=== PATIENT | female | born 1975 | race Caucasian/White ===

== ENCOUNTER → 2018-02-01 10:59 | Outpatient (CLI) | payer OTHER, SELFPAY ==
[2018-02-01 11:32] LABS: Potassium 3.5 mmol/L (3.5-5.1)
[2018-02-01 14:08] LABS: Urine Chloride < 10 mmol/L (Not Establ.); Urine Sodium < 5 mmol/L (Not Establ.)
== END ==
PROVIDERS: Visit Provider Internal Medicine Nephrology
DX: E87.6 Hypokalemia (principal)
CPT/HCPCS: 36415; 82436; 84132; 84133; 84300

== ENCOUNTER 2018-02-06 14:31 | Emergency (ER) | payer OTHER, SELFPAY ==
[2018-02-06 14:32] VITALS: BP 112/53; PULSE 108; RESP 18; TEMP 36.4; O2SAT 98; BMI 21.9
--- NOTE | 2018-02-06 14:56 | EKG12_ITS ---
Test Reason : ABN LABS Blood Pressure : / mmHG Vent. Rate : 093 BPM Atrial Rate : 093 BPM P-R Int : 110 ms QRS Dur : 078 ms QT Int : 364 ms P-R-T Axes : 073 086 057 degrees QTc Int : 452 ms Sinus rhythm with short [place] Otherwise normal ECG Confirmed by DAKOTA JEONG, KATHERYN ([id number]), medical transcription editor SAMANTHA VILLEGAS ([id number]) on 02/09/2018 1:52:26 PM Referred By: CANDIS Confirmed By:KATHERYN DUNCAN MD
--- NOTE | 2018-02-06 15:00 | ED.VISSUMM ---
- ER Visit Summary Date of Service: 02/06/18 Chief Complaint: Hypokalemia History of Present Illness: The patient is a 42 F with possible low potassium. She had multiple episodes of this in the past. She feels weak and has muscle contractions and nausea vomiting. Symptoms started yesterday. She has been taking 50 mEq of potassium 4 times a day. She has been hospitalized multiple times for this. She is not sure why she has hypokalemia. Physical Examination: Afebrile and vital signs unremarkable except for heart rate of 108. Skin appears normal. Heart regular. Lungs clear. No focal neurologic abnormalities grossly. Test Results: EKG, labs, magnesium pending. Emergency Department Course and Treatment: Hemoglobin 17.6 and platelets 462. Sodium 134, potassium 1.4, chloride 93, CO2 33, BUN 20, creatinine 1.24. Magnesium 2.8. test negative. EG showed sinus rhythm at a rate of 93. No sign of acute ischemia or infarction pattern. No signs of hyperkalemia changes. I do not have old labs for comparison. It looks like the patient is a little bit dehydrated. She received a fluid bolus here. I believe she is appropriate for outpatient follow-up. She will call her learning program manager for follow-up tomorrow. If she has trouble following up or has new or worsening symptoms, she was advised to return. Treatment Plan: As above Disposition: Discharged Impression: 1. Dehydration This note was generated with [employer] dictation software. It may contain incorrect words, spelling, and punctuation that were not noted in review of the chart prior to signing ED Disposition - Plan for ED Patient: Chief Complaint: Abn Labs Referrals: Carline Rose PA-C [Primary Care Provider] -
--- NOTE | 2018-02-06 15:03 | ED.DCSUM_ITS ---
- ER Visit Summary Date of Service: 02/06/18 Chief Complaint: Hypokalemia History of Present Illness: The patient is a 42 F with possible low potassium. She had multiple episodes of this in the past. She feels weak and has muscle contractions and nausea vomiting. Symptoms started yesterday. She has been taking 50 mEq of potassium 4 times a day. She has been hospitalized multiple times for this. She is not sure why she has hypokalemia. Physical Examination: Afebrile and vital signs unremarkable except for heart rate of 108. Skin appears normal. Heart regular. Lungs clear. No focal neurologic abnormalities grossly. Test Results: EKG, labs, magnesium pending. Emergency Department Course and Treatment: Hemoglobin 17.6 and platelets 462. Sodium 134, potassium 1.4, chloride 93, CO2 33, BUN 20, creatinine 1.24. Magnesium 2.8. test negative. EG showed sinus rhythm at a rate of 93. No sign of acute ischemia or infarction pattern. No signs of hyperkalemia changes. I do not have old labs for comparison. It looks like the patient is a little bit dehydrated. She received a fluid bolus here. I believe she is appropriate for outpatient follow-up. She will call her ski maker wood for follow-up tomorrow. If she has trouble following up or has new or worsening symptoms, she was advised to return. Treatment Plan: As above Disposition: Discharged Impression: 1. Dehydration This note was generated with [employer] dictation software. It may contain incorrect words, spelling, and punctuation that were not noted in review of the chart prior to signing ED Disposition - Plan for ED Patient: Chief Complaint: Abn Labs Referrals: Carline Rose PA-C [Primary Care Provider] -
[2018-02-06 15:12] VITALS: BP 99/82; RESP 14; O2SAT 99
[2018-02-06 15:12] LABS: Absolute Lymphocyte Count 3.31 X10^3/ul (0.83-4.51); Absolute Neutrophil Count 5.8 X10^3/uL (2.0-7.7); Basophil# 0.05 X10^3/uL; Basophil% 0.5 % (0-1); Eosinophil# 0.03 X10^3/uL; Eosinophils% 0.3 % (0-5); Hematocrit 50.9 % (37-47); Hemoglobin 17.6 g/dl (12.0-15.0); Lymphocyte # 3.31 X10^3/ul (4.0); Lymphocyte % 31.9 % (19-41); Mean Corp Hgb Conc 34.6 g/gl (32-36); Mean Corpuscular Hgb 32.2 pg (27.0-32.0); Mean Corpuscular Volume 93.2 fL (81-99); Mean Platelet Vol. 9.3 fl (6.2-12.0); Monocyte# 1.13 X10^3/uL; Monocyte% 10.9 % (0-10); Neutrophil # 5.84 X10^3/uL (2.7-7.7); Neutrophil % 56.2 % (47-70); Platelet Count 462 K/mm3 (150-450); RBC Distribution Width CV 14.3 % (11.6-14.6); RBC Distribution Width SD 48.2 fl (35.1-43.9); Red Blood Count 5.46 M/mm3 (4.2-5.4); White Blood Count 10.4 K/mm3 (4.4-11.0)
[2018-02-06 15:13] LABS: Differential Indicated SCAN CRITERIA MET; POSITIVE COUNT NO; POSITIVE DIFFERENTIAL NO; POSITIVE MORPHOLOGY YES
[2018-02-06 15:14] LABS: Anion Gap 8 (5-15); BUN 20 mg/dL (7-18); BUN/Creat Ratio 16.1 RATIO (10-20); Calcium,Total 9.3 mg/dL (8.5-10.1); Chloride 93 mmol/L (98-107); Creatinine, Serum 1.24 mg/dL (0.55-1.02); EST Glomerular Filtration Rate 50 mL/min (>60); Est Glom Filt Rate - Afr Amer 61 mL/min (>60); Estimated Creatinine Clearance 48.89 ml/min; Glucose 69 mg/dL (74-106); Magnesium 2.8 mg/dL (1.6-2.6); Potassium 4.4 mmol/L (3.5-5.1); Sodium Level 134 mmol/L (136-145)
[2018-02-06 15:43] LABS: Pregnancy, Serum, hCG Quali. NEGATIVE Negative (0-9 Nonpreg)
[2018-02-06 15:48] LABS: Reactive Lymphocyte 2+
--- NOTE | 2018-02-06 16:02 | ED.DEP ---
ED Disposition - Plan for ED Patient: Chief Complaint: Abn Labs Instructions: ED Dehydration Referrals: Angelica Guadarrama DO [STAFF PHYSICIAN] -
[2018-02-06] MEDS: 0.9% Normal Saline 1,000 ML 999 ML IV (16:10)
[2018-02-06 16:50] VITALS: BP 96/79; PULSE 88; RESP 16; O2SAT 100
== END 2018-02-06 16:56 | disposition home or self-care (01) ==
PROVIDERS: Emergency Provider Emergency Medicine; Family Provider Family Medicine; PCP Family Medicine
DX: E87.6 Hypokalemia (principal); E86.0 Dehydration; Z72.0 Tobacco use; G43.909 Migraine, unspecified, not intractable, without status migrainosus; F41.9 Anxiety disorder, unspecified; F42.9 Obsessive-compulsive disorder, unspecified; Z79.899 Other long term (current) drug therapy
CPT/HCPCS: 80048; 83735; 84703; 85025; 93005; 96360; 99285; J7030; A4216

== ENCOUNTER 2018-02-14 10:22 | Emergency (ER) | payer OTHER, SELFPAY ==
[2018-02-14 10:23] VITALS: BP 108/79; PULSE 113; RESP 18; TEMP 36.6; O2SAT 97; BMI 21.6
--- NOTE | 2018-02-14 10:56 | RAD_ITS ---
STUDY: X-RAY CHEST REASON FOR EXAM: Female, 42 years old. Decreased potassium level. Dehydration. TECHNIQUE: PA and lateral views of the chest. COMPARISON: None. FINDINGS: The lungs are clear and expanded. There is no demonstrated pleural abnormality. Normal size heart. Normal mediastinum and lia. Normal visualized pulmonary arteries. Normal visualized aortic arch and descending thoracic aorta. Normal visualized thoracic spine. Normal visualized ribs, clavicles, and shoulders. There is no demonstrated abnormality of the visualized soft tissue structures of the upper abdomen. RAD/Chest PA and Lateral IMPRESSION: Normal x-ray examination of the chest. Electronically Signed: Kiko Montejo MD at 12:29 EDT Tel [phone], Service support ,
[2018-02-14 11:17] LABS: Absolute Lymphocyte Count 3.11 X10^3/ul (0.83-4.51); Absolute Neutrophil Count 5.6 X10^3/uL (2.0-7.7); Basophil# 0.02 X10^3/uL; Basophil% 0.2 % (0-1); Eosinophil# 0.01 X10^3/uL; Eosinophils% 0.1 % (0-5); Hematocrit 46.1 % (37-47); Hemoglobin 16.3 g/dl (12.0-15.0); Lymphocyte # 3.11 X10^3/ul (4.0); Lymphocyte % 32.6 % (19-41); Mean Corp Hgb Conc 35.4 g/gl (32-36); Mean Corpuscular Volume 90.4 fL (81-99); Monocyte# 0.76 X10^3/uL; Neutrophil # 5.62 X10^3/uL (2.7-7.7); Neutrophil % 58.9 % (47-70); POSITIVE COUNT NO; POSITIVE DIFFERENTIAL NO; POSITIVE MORPHOLOGY NO; Platelet Count 429 K/mm3 (150-450); RBC Distribution Width CV 13.6 % (11.6-14.6); RBC Distribution Width SD 44.7 fl (35.1-43.9); White Blood Count 9.5 K/mm3 (4.4-11.0)
[2018-02-14] MEDS: 0.9% Normal Saline 1,000 ML 1000 ML IV (11:20)
[2018-02-14] MEDS: Ondansetron 4 MG/2 ML Vial IV (11:20)
[2018-02-14] MEDS: Ketorolac 30 MG/ML Syringe IV (11:20)
[2018-02-14 11:27] LABS: Anion Gap 11 (5-15); BUN 21 mg/dL (7-18); BUN/Creat Ratio 22.7 RATIO (10-20); Calcium,Total 8.5 mg/dL (8.5-10.1); Chloride 93 mmol/L (98-107); Creatinine, Serum 0.92 mg/dL (0.55-1.02); EST Glomerular Filtration Rate 70 mL/min (>60); Est Glom Filt Rate - Afr Amer 85 mL/min (>60); Glucose 82 mg/dL (74-106); Potassium 3.1 mmol/L (3.5-5.1); Sodium Level 133 mmol/L (136-145)
[2018-02-14 11:38] VITALS: RESP 16; TEMP 36.9; O2SAT 100
[2018-02-14 12:00] LABS: Pregnancy, Serum, hCG Quali. NEGATIVE Negative (0-9 Nonpreg)
--- NOTE | 2018-02-14 12:41 | ED.VISSUMM ---
- ER Visit Summary Date of Service: 02/14/18 Chief Complaint: Weakness History of Present Illness: The patient is a [address] Rose. She reports that she has generalized weakness that began yesterday. States that she has had this previously when she has been dehydrated and her potassium has been low. Patient reports that she has a cough that began 3 days ago that is productive green sputum without blood. She denies any abdominal pain. She reports she has been nausea and vomited 6 times. No blood or emesis. She had one episode of diarrhea. No blood in her stools. Physical Examination: Vitals: Stable. Afebrile. General: Well-nourished and well-developed. Head: Normocephalic atraumatic. Neck: Supple, no lymphadenopathy. No JVD. Nontender. Cardiovascular: Regular rate and rhythm. No murmurs. Respiratory: No respiratory distress. Clear to auscultation bilaterally. Abdominal: Soft, nontender, nondistended, normal bowel sounds. No guarding, rebound, or peritoneal signs. Back: Nontender. Extremities: Nontender, no edema. Skin: Normal color, no rash. Neurologic: Alert and oriented ?3. Cranial nerves II through XII are intact. Normal strength and sensation. Psych: Normal affect. Test Results: CBC is marked for hemoglobin 16.3. Chem-7 is marked potassium 3.1, chloride of 93, BUN 21, BUN/creatinine ratio 22.7. test is negative. Chest x-ray is normal. Emergency Department Course and Treatment: Patient was given a liter bolus of normal saline. She is also given K-Dur p.o. She has had no vomiting or diarrhea while here. Treatment Plan: Patient will be discharged on 3 days of potassium. She is given Zofran for nausea. Instructed to follow-up her primary care physician 1-2 days if not improving. Return to the emergency department for any worsening symptoms. Disposition: To home in improved and stable condition. Impression: 1. Dehydration. 2. Hypokalemia. 3. URI. This note was generated with [employer] dictation software. It may contain incorrect words, spelling, and punctuation that were not noted in review of the chart prior to signing ED Disposition - Plan for ED Patient: Chief Complaint: Abn Labs Instructions: ED Potassium Deficiency Prescriptions: Ondansetron [Zofran Odt] 4 mg PO Q8H PRN PRN #10 tablet PRN Reason: Nausea Potassium Chloride [K-Dur] 20 meq PO BID #10 tablet Referrals: Carline Rose PA-C [Primary Care Provider] - 1-2 Days if not improving
--- NOTE | 2018-02-14 12:52 | ED.DCSUM_ITS ---
- ER Visit Summary Date of Service: 02/14/18 Chief Complaint: Weakness History of Present Illness: The patient is a [address] Rose. She reports that she has generalized weakness that began yesterday. States that she has had this previously when she has been dehydrated and her potassium has been low. Patient reports that she has a cough that began 3 days ago that is productive green sputum without blood. She denies any abdominal pain. She reports she has been nausea and vomited 6 times. No blood or emesis. She had one episode of diarrhea. No blood in her stools. Physical Examination: Vitals: Stable. Afebrile. General: Well-nourished and well-developed. Head: Normocephalic atraumatic. Neck: Supple, no lymphadenopathy. No JVD. Nontender. Cardiovascular: Regular rate and rhythm. No murmurs. Respiratory: No respiratory distress. Clear to auscultation bilaterally. Abdominal: Soft, nontender, nondistended, normal bowel sounds. No guarding, rebound, or peritoneal signs. Back: Nontender. Extremities: Nontender, no edema. Skin: Normal color, no rash. Neurologic: Alert and oriented ?3. Cranial nerves II through XII are intact. Normal strength and sensation. Psych: Normal affect. Test Results: CBC is marked for hemoglobin 16.3. Chem-7 is marked potassium 3.1 , chloride of 93, BUN 21, BUN/creatinine ratio 22.7. test is negative. Chest x-ray is normal. Emergency Department Course and Treatment: Patient was given a liter bolus of normal saline. She is also given K-Dur p.o. She has had no vomiting or diarrhea while here. Treatment Plan: Patient will be discharged on 3 days of potassium. She is given Zofran for nausea. Instructed to follow-up her primary care physician 1- 2 days if not improving. Return to the emergency department for any worsening symptoms. Disposition: To home in improved and stable condition. Impression: 1. Dehydration. 2. Hypokalemia. 3. URI. This note was generated with [employer] dictation software. It may contain incorrect words, spelling, and punctuation that were not noted in review of the chart prior to signing ED Disposition - Plan for ED Patient: Chief Complaint: Abn Labs Instructions: ED Potassium Deficiency Prescriptions: Ondansetron [Zofran Odt] 4 mg PO Q8H PRN PRN #10 tablet PRN Reason: Nausea Potassium Chloride [K-Dur] 20 meq PO BID #10 tablet Referrals: Carline Rose PA-C [Primary Care Provider] - 1-2 Days if not improving
[2018-02-14 13:07] VITALS: BP 108/73; PULSE 93; RESP 16; O2SAT 98
== END 2018-02-14 13:24 | disposition home or self-care (01) ==
LOC: ED 11:19
PROVIDERS: Emergency Provider Emergency Medicine; Family Provider Family Medicine; PCP Family Medicine
DX: E87.6 Hypokalemia (principal); E86.0 Dehydration; J06.9 Acute upper respiratory infection, unspecified; G43.909 Migraine, unspecified, not intractable, without status migrainosus; K58.9 Irritable bowel syndrome, unspecified; F41.9 Anxiety disorder, unspecified; Z79.899 Other long term (current) drug therapy; Z72.0 Tobacco use
CPT/HCPCS: 71046; 80048; 84703; 85025; 96361; 96374; 96375; 99283; A4216; J2405

== ENCOUNTER → 2020-02-16 | Outpatient (CLI) | payer OTHER, SELFPAY ==
[2020-02-16 12:24] LABS: Color, Urine Yellow (Yellow); Glucose, Dipstick Normal (Normal); Ketone-Dipstick Negative (Negative); Leukocyte Esterase-Dipstick 500 /ul (Negative); Nitrite-Dipstick Negative (Negative); Occult Blood-Urine 10 /ul (Negative); Protein-Dipstick 15 mg/dl (Negative); Specific Gravity, Urine 1.025 (1.002-1.030); Urine Bilirubin Dipstick Negative (Negative); Urine Clarity Sl. Cloudy (Clear); Urine Urobilinogen Normal (Normal)
[2020-02-16 12:59] LABS: White Blood Cells 10-25 SEEN /hpf (0-5)
[2020-02-16 13:00] LABS: Bacteria 2+ /hpf (None Seen); Calcium Oxalate Crystals Ur 2+ /hpf (<or=2+); Mucous, Urine 2+ /hpf (<or=2+); Red Blood Cells-Urine 0-5 SEEN /hpf (0-5); Squamous Epithelial Cells - UA 10-25 SEEN /hpf (5-10)
== END | disposition home or self-care (01) ==
LOC: LABSPEC 11:49
PROVIDERS: PCP Family Medicine; Referring Provider Obstetrics & Gynecology; Visit Provider Obstetrics & Gynecology
DX: R30.0 Dysuria (principal)
CPT/HCPCS: 81001; 87086; 87088; 87186

== ENCOUNTER → 2020-05-26 | Outpatient (CLI) | payer OTHER, SELFPAY ==
[2020-05-26 17:30] LABS: Chlamydia Trachomatis by PCR Negative (Negative); Neisserai gonorrhoeae by PCR Negative (Negative); Probe Check PASS; Sample Adequacy Control PASS; Specimen Processing Control PASS; Trichomonas Vag DNA by PCR Negative (Negative)
== END | disposition home or self-care (01) ==
LOC: LABSPEC 15:36
PROVIDERS: PCP Family Medicine; Visit Provider Obstetrics & Gynecology
DX: Z11.3 Encounter for screening for infections with a predominantly sexual mode of transmission (principal)
CPT/HCPCS: 87491; 87591; 87661

== ENCOUNTER → 2021-05-28 | Outpatient (CLI) | payer OTHER, SELFPAY ==
--- NOTE | 2021-05-28 | IMM_PTH ---
PATIENT: LIEN IZAGUIRRE LOC: [facility] U#:[id number] AGE/SX: 46/F ROOM: RE05/28/[address]: Dr. Beulah Lepe MD : 1975 BED: DIS: 05/28/2021 SPEC #: [id number] RECD: 06/01/21 14:38 STATUS: IMANI REQ #: [id number] JO ANN: 05/28/21 00:[address]: Beulah Lepe DEPT: IMMUNOHISTOCHEMISTRY RECD BY: Shala Brush ENTERED: 06/01/21 14:38 SP TYPE: IMMUNO OTHR DR: Carline Rose PA-C Tissues: B - Uterine cervix, NOS Procedures: p16 (initial) KI-67 (add) PHYSICIAN & INSTITUTION [place] [phone] SPECIMEN INFORMATION: Tissue Source: B ? Cervix at 3 and 6 o?clock Clinical Info: ASCUS HPV positive Specimen Number: [id number] CPT code: 29833, 90845 METHODOLOGY: Deparaffinized sections of prefer/formalin-fixed tissue or PAP/DQ stained slides are incubated with monoclonal/polyclonal antibodies/oligonucleotide probes. Localization is made via biotin free immunoperoxidase method. Appropriate controls are performed and reacted as expected. Results on target cell population are indicated in the following table: RESULTS: ANTIBODY / CLONE RESULT Block B P16 (E6H4) positive, patchy and focal block-like Ki-67 (30-9) positive, low These tests were developed and their performance characteristics determined by [facility]. They may not have been cleared or approved by the U.S. Food and Drug Administration. The FDA has determined that such clearance or approval is not necessary. The above immunohistochemical/dualISH markers are ordered and reviewed by the Pathologist. INTERPRETATION: B. 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 AM:carlos enrique 06/02/2021 Case has been reviewed in consultation with Dr. Basurto who concurs with the above diagnosis. IDC:SJ
[2021-05-28 13:23] VITALS: BMI 21.8
--- NOTE | 2021-05-28 14:00 | ECC_PTH ---
PATIENT: LIEN IZAGUIRRE [id number] AGE/SX: 46/F ROOM: RE05/28/[address]: Dr. Beulah Lepe MD : 1975 BED: DIS: 05/28/2021 SPEC #: [id number] RECD: 05/28/21 17:10 STATUS: IMANI REHayley #: [id number] JO ANN: 05/28/21 14:[address]: Beulah Lepe DEPT: SURGICAL PATHOLOGY RECD BY: Roger Hong ENTERED: 05/29/21 09:06 SP TYPE: ECC LISA DR: Carline Rose PA-C Tissues: A - Endocervical B - Uterine cervix, NOS Procedures: Surgery Specimen Level IV HEADER OPERATION: Colposcopy PRE-OP DIAGNOSIS: ASCUS HPV positive TISSUE SUBMITTED: A ? ECC, B ? 3 and 6 o?clock MICROSCOPIC DIAGNOSIS A. Endocervix, curettings: Scant strips of benign superficial endocervix. Rare fragments of benign squamous mucosa. No evidence of dysplasia. B. Cervix at 3 and 6 o?clock, biopsy: Mild and focal moderate squamous dysplasia, JOHN I-II (HSIL). Chronic inflammation. Changes consistent with HPV cytopathic effect. See comment. AM:carlos enrique 06/01/2021 COMMENT B. Results from immunohistochemistry ([id number]) for surrogate HPV marker (p16) will be reported separately. Case has been reviewed in consultation with Dr. Basurto who concurs with the above diagnosis. IDC:SJ MICROSCOPIC DESCRIPTION Slides are reviewed. GROSS DESCRIPTION A - Received in fixative is one container labeled with the patient's name and designated ECC. The specimen consists of a scant amount of soft tissue. The specimen is totally submitted for cell block preparation. B - Received in fixative is one container labeled with the patient's name and designated 3 and 6 o'clock. The specimen consists of multiple irregular fragments of metz soft tissue that in aggregate measure 1 x 0.5 x 0.1 cm. The specimen is totally submitted in one cassette. / DOROTHY:carlos enrique 05/29/21 TC:3 CPT: 98378 x2
== END | disposition home or self-care (01) ==
LOC: LABSPEC 05-29 12:16
PROVIDERS: PCP Family Medicine; Visit Provider Obstetrics & Gynecology
DX: R87.610 Atypical squamous cells of undetermined significance on cytologic smear of cervix (ASC-US) (principal); R87.810 Cervical high risk human papillomavirus (HPV) DNA test positive
CPT/HCPCS: 88305; 88341; 88342

== ENCOUNTER 2021-07-14 08:03 | Day surgery (SDC) | payer OTHER, SELFPAY ==
[2021-06-12 15:14] VITALS: BMI 21.8
[2021-07-14] VITALS (7 sets, daily range): BP systolic 84–117; BP diastolic 55–86; PULSE 66–88; RESP 16; TEMP 35.7–36.6; O2SAT 98–100; BMI 22.4
--- NOTE | 2021-07-14 | IMM_PTH ---
PATIENT: LIEN IZAGUIRRE [place] [facility] [place][id number] AGE/SX: 46/F ROOM: RE07/14/[address]: Dr. Beulah Lepe MD : 1975 BED: DIS: 07/14/2021 SPEC #: [id number] RECD: 07/15/21 14:12 STATUS: IMANI REQ #: [id number] JO ANN: 07/14/21 00:[address]: Beulah Lepe DEPT: IMMUNOHISTOCHEMISTRY RECD BY: Shala Brush ENTERED: 07/15/21 14:13 SP TYPE: IMMUNO OTHR DR: Carline Rose PA-C Tissues: A - UTERINE CERVIX LEEP Procedures: p16 (initial) KI-67 (add) P16 (add) PHYSICIAN & INSTITUTION [place] [id number] SPECIMEN INFORMATION: Tissue Source: A - LEEP Clinical Info: JOHN II Specimen Number: [id number] A1 & A2 CPT code: 21399, 13832 x3 METHODOLOGY: Deparaffinized sections of prefer/formalin-fixed tissue or PAP/DQ stained slides are incubated with monoclonal/polyclonal antibodies/oligonucleotide probes. Localization is made via biotin free immunoperoxidase method. Appropriate controls are performed and reacted as expected. Results on target cell population are indicated in the following table: RESULTS: ANTIBODY / CLONE RESULT Block A1 P16 (E6H4) negative Ki-67 (30-9) negative Block A2 P16 (E6H4) negative Ki-67 (30-9) negative These tests were developed and their performance characteristics determined by [facility]. They may not have been cleared or approved by the U.S. Food and Drug Administration. The FDA has determined that such clearance or approval is not necessary. The above immunohistochemical/dualISH markers are ordered and reviewed by the Pathologist. INTERPRETATION: A. Cervix, LEEP conization: Focal minimal changes suspicious for HPV cytopathic effects. SJ:carlos enrique 07/16/2021
[2021-07-14] MEDS: Lactated Ringers 1,000 ML 100 ML IV ×2 (08:53→11:45)
[2021-07-14 08:55] LABS: Mean Corp Hgb Conc 33.3 g/dL (32-36); Mean Corpuscular Hgb 30.2 pg (27.0-32.0); Mean Corpuscular Volume 90.5 fL (81-99); Mean Platelet Vol. 9.2 fl (6.2-12.0); Platelet Count 393 K/mm3 (150-450); RBC Distribution Width CV 13.3 % (11.6-14.6); RBC Distribution Width SD 44.6 fl (35.1-43.9); Red Blood Count 4.64 M/mm3 (4.2-5.4)
--- NOTE | 2021-07-14 09:45 | CONE_PTH ---
PATIENT: LIEN IZAGUIRRE [place] [facility] [place][id number] AGE/SX: 46/F ROOM: RE07/14/[address]: Dr. Beulah Lepe MD : 1975 BED: DIS: 07/14/2021 SPEC #: [id number] RECD: 07/14/21 12:08 STATUS: IMANI REHayley #: [id number] JO ANN: 07/14/21 09:[address]: Beulah Lepe DEPT: SURGICAL PATHOLOGY RECD BY: Nelia Alvarez ENTERED: 07/14/21 13:08 SP TYPE: Leep Cone LISA DR: Carline Rose PA-C Tissues: A - UTERINE CERVIX LEEP B - Endocervical Procedures: Surgery Specimen Level IV Surgery Specimen Level V HEADER OPERATION: LEEP cone PRE-OP DIAGNOSIS: JOHN 2 TISSUE SUBMITTED: A ? GRETCHEN, B - ECC MICROSCOPIC DIAGNOSIS A. Cervix, LEEP conization: Focal minimal changes suspicious for HPV cytopathic effects. Chronic inflammation and squamous metaplasia. Resection margins are free of dysplastic changes. B. ECC: Scant fragments of benign endocervical epithelium, blood and mucous, negative for dysplasia. SJ:carlos enrique 07/15/2021 COMMENT Please make reference to previous specimen ([id number]) cervix at 3 and 6 o?clock, biopsy with diagnosis of ?mild and focal moderate squamous dysplasia.? Case has been reviewed in consultation with Dr. Samuel who concurs with the above diagnosis. IDC:AM MICROSCOPIC DESCRIPTION Slides are reviewed. GROSS DESCRIPTION A - Received in fixative is one container labeled with the patient's name and designated LEEP. The specimen consists of five variable sized pieces of metz, indurated tissue. The largest piece measures 2.5 x 1.5 x 1 cm and the second largest piece measures 2 x 1.5 x 0.5 cm. It appears to consist of LEEP. Also present in the container are three smaller pieces that in aggregate measure 3 x 1 x 0.3 cm. No mucosal lesion is identified. Nonmucosal surface is inked black. The entire specimen is submitted in seven cassettes as follows: 1-3 ? second largest piece ? LEEP, 4 & 5 ? largest piece, 6 & 7 ? smaller three pieces. B - Received in fixative is one container labeled with the patient's name and designated ECC. The specimen consists of multiple fragments of hemorrhagic soft tissue that in aggregate measure 0.5 x 0.1 x 0.1 cm. The specimen is totally submitted in one cassette. / SJ:carlos enrique 07/14/21 TC:5 CPT: 21506, 89746
--- NOTE | 2021-07-14 11:03 | PCM.HP.OB ---
HPI - General HPI Narrative LIEN IAZGUIRRE, is a 46 F who presents for LEEP for JOHN II PFSH PFSH Medical History (Updated 07/07/21 @ 14:12 by Estee Gonzales) Abnormal Pap smear of cervix Alcohol use Anxiety Depression Endometriosis Former smoker History of IBS Leg cramps Wears glasses Home Medications clomipramine 75 mg capsule 250 mg PO QHS 05/28/21 [History Last Taken Unknown] linaclotide 290 mcg capsule 290 mcg PO QHS 05/28/21 [History Last Taken Unknown] potassium chloride 20 mEq tablet,extended release(part/cryst) 40 meq PO BID tablet 05/28/21 [History Last Taken Unknown] prucalopride 2 mg tablet 2 mg PO QHS 05/28/21 [History Last Taken Unknown] Allergy/AdvReac Type Severity Reaction Status Date / Time bupropion [From Wellbutrin] Allergy Mild lip Verified 07/14/21 08:46 swelling clavulanic acid Allergy Mild yeast Verified 07/14/21 08:46 [From Augmentin] amoxicillin AdvReac Other Verified 07/14/21 08:46 Family History Grandmother Lung cancer Father Heart disease Surgical History (Updated 07/07/21 @ 14:02 by Estee Gonzales) History of cholecystectomy History of foot surgery S/P S/P laparoscopic procedure S/P tonsillectomy and adenoidectomy S/P tubal ligation Status post right breast lumpectomy Social History Smoking Status: Former smoker alcohol intake: never substance use type: does not use caffeine: Yes what type of physical activity do you participate in: none seatbelt use: always do you feel safe at home: Yes additional social history: Single History 1 Elective abortions Hx Para 1 Spontaneous abortions Hx # Term Pregnancies Ectopic pregnancies Hx # Pregnancies Multiple births # of living children Past Pregnancies Del. Date Name GA/Weeks Outcome Route Bth Weight Infant Gen Labor Lgth Anesthesia Del Locatn Provider FOB Unknown Emeli (boy) ROS Eyes Eyes: Reports systems reviewed and no addt'l complaints, except as documented ENT HEENT: Reports systems reviewed and no addt'l complaints, except as documented Cardiovascular Cardiovascular: Reports systems reviewed and no addt'l complaints, except as documented Respiratory/Chest Respiratory/Chest: Reports systems reviewed and no addt'l complaints, except as documented Gastrointestinal Gastrointestinal: Reports systems reviewed and no addt'l complaints, except as documented Genitourinary Genitourinary: Reports systems reviewed and no addt'l complaints, except as documented Musculoskeletal Musculoskeletal: Reports systems reviewed and no addt'l complaints, except as documented Integumentary Integumentary: Reports systems reviewed and no addt'l complaints, except as documented Neurologic Neurologic: Reports systems reviewed and no addt'l complaints, except as documented Psychiatric Psychiatric: Reports systems reviewed and no addt'l complaints, except as documented Endocrine Endocrinology: Reports systems reviewed and no addt'l complaints, except as documented Hematologic/Lymphatic Hematologic/Lymphatic: Reports systems reviewed and no addt'l complaints, except as documented Allergic/Immunologic Allergic/Immunologic: Reports systems reviewed and no addt'l complaints, except as documented Vital Signs Vital Signs Vital Signs: 07/14/21 08:48 Temperature 97.8 F Temperature Source Temporal Pulse Rate 66 Respiratory Rate 16 Respiratory Pattern Normal Blood Pressure 105/85 H Blood Pressure Mean 91 Blood Pressure Source Monitor Blood Pressure Position Semi-Fowlers Blood Pressure Location Left Arm Pulse Ox 100 Oxygen Delivery Method Room Air Weight Weight: 126 lb 12.253 oz Body Mass Index (BMI) 22.4 Physical Exam Const alert, oriented x3, no apparent distress, average body habitus, healthy appearing and well nourished HEENT normocephalic and moist oral mucous membranes Head and Scalp: atraumatic Eyes PERRL and EOMs intact bilaterally Neck full ROM Resp normal respiratory effort, no retractions and no use of accessory muscles Cardio regular rate and regular rhythm GI soft to palpation, non-tender and non-distended Extremity normal to inspection and full ROM Skin no rashes or lesions noted Neuro no focal motor deficits and no sensory deficits noted Psych mental status grossly normal, affect normal, speech normal and activity/motor behavior normal Labs Labs Labs: Blood Type A POSITIVE Antibody Screen NEGATIVE Hct 42.0 % (37-47) Hgb 14.0 g/dL (12.0-15.0) Pap Smear Positive C.trachomatis DNA (PCR) Negative (Negative) Assessment & Plan (1) JOHN II (cervical intraepithelial neoplasia II): PLAN: Patient presents for LEEP Biopsy showed focal JOHN-2. ECC was negative Discussed with patient that given presence of JOHN-2, I would recommend proceeding with an excisional procedure at this time. The risks, benefits, indications, and alternatives to the procedure were discussed with the patient including bleeding, infection, and damage to surrounding structures. Agreeable to blood products if medically necessary. Discussed risk of infection relatively low, but would typically present with foul smelling discharge or fevers after delivery. Discussed risk of damage to cervix and uterus. Discussed that this can rarely result in excessive bleeding that could potentially result in need for hysterectomy. All questions were answered to the best of my ability. Plan for LEEP procedure.
--- NOTE | 2021-07-14 11:09 | PCM.OPRPT ---
Problems Associated Problem List Diagnoses (1) JOHN II (cervical intraepithelial neoplasia II): Report of Operation Date of Procedure: 07/14/21 Pre-Operative Diagnosis: JOHN-2 Post-Operative Diagnosis: Same Surgery/Procedure Performed:: LEEP with ECC Description of Surgical Findings:: Nonstaining area from 8-10 o'clock portrait photographer: None Specimen's removed: LEEP, ECC Estimated Blood Loss (mL): 10 cc Description of Procedure: Patient was taken to the operating room where general anesthesia was obtained without difficulty. She was prepped and draped in the dorsal lithotomy position with yellowfin stirrups. A insulated speculum was placed in the vagina. A paracervical block was performed using 10 cc of 1% lidocaine. Lugol's solution was applied to the cervix and a nonstaining area was noted from 8-10 o'clock. A 1 cm loop was then used to perform the LEEP on 70 W of pure cut energy. An endocervical curettage was then performed. The rollerball was then used to obtain hemostasis. Adequate hemostasis was noted and Monsel solution was applied to the cervix. All instruments were removed from the vagina. All counts were correct x2. The patient was taken to the recovery room in stable condition. Complications None apparent Admit VTE Documentation VTE Present on Admission: No VTE Mechan Device Prophylaxis: [facility] Pharm Prophylaxis ordered?: No Procedures Urinary/Genital 52xxx-59xxx: [id number] LEEP
--- NOTE | 2021-07-14 11:10 | PCM.DC ---
Discharge Instructions Diet Discharge Diet: No restrictions Activity Discharge Activity: Return to Normal Activity and May Not Drive (while taking narcotic pain medications.) May resume sexual activity in: 4 weeks (nothing in the vagina for 4 weeks.) Dressing / Incision Call your doctor if you observe: Fever of 101 or Higher and Using more than 1 pad per hour Follow Up Care Test Results: Test results from this visit will be discussed in further detail at your follow-up appointment, if applicable. Discharge Plan Admission Primary Reason for Your Visit: GRETCHEN Attending Provider: Beulah Lepe Primary Care Provider: Carline Rose Instructions Patient Instructions: Gretchen Discharge Orders/Prescriptions Prescriptions: New ibuprofen 800 mg tablet 800 mg PO Q8H PRN (Reason: pain) Qty: 30 RF: 1 oxycodone 5 mg capsule 5 mg PO Q6H PRN (Reason: pain) 2 Days Qty: 5 RF: 0 Continued potassium chloride [Klor-Con M20] 20 mEq tablet,ER particles/crystals 40 meq PO BID RF: 0 Motegrity 2 mg tablet 2 mg PO QHS RF: 0 clomipramine 75 mg capsule 250 mg PO QHS RF: 0 Linzess 290 mcg capsule 290 mcg PO QHS RF: 0 Referrals / Follow Up: Carline Rose PA-C [Primary Care Provider] - Disposition Disposition (needs filled in before D/C Order can be placed): Home, Self Care
[2021-07-14] MEDS: Lidocaine 1% (20 ml mdv) 20 ML Vial (11:38)
[2021-07-14] MEDS: Iodine/Potassium Iodide 14ML Bottle 1 DRP TOPICAL (11:40)
[2021-07-14] MEDS: FERRIC SUBSULFATE 8 GM SOLN (11:40)
== END 2021-07-14 12:45 | disposition home or self-care (01) ==
LOC: SDC 08:09 → AC 08:10
PROVIDERS: PCP Family Medicine; Referring Provider Obstetrics & Gynecology; Visit Provider Obstetrics & Gynecology
PROC: 0UBC7ZZ Excision of Cervix, Via Natural or Artificial Opening (ICD-10-PCS; CPT 57522; principal; 2021-07-14 09:30)
DX: N87.1 Moderate cervical dysplasia (principal); K58.9 Irritable bowel syndrome, unspecified; E87.6 Hypokalemia; F32.9 Major depressive disorder, single episode, unspecified; F41.9 Anxiety disorder, unspecified; Z79.899 Other long term (current) drug therapy; Z87.891 Personal history of nicotine dependence
CPT/HCPCS: 00940; 57522; 85027; 86850; 86900; 86901; 88305; 88307; 88341; 88342; J7120; J2405

== ENCOUNTER → 2022-04-27 | Outpatient (CLI) | payer OTHER, SELFPAY ==
--- NOTE | 2022-04-27 12:47 | US_ITS ---
STUDY: ULTRASOUND OF THE FEMALE PELVIS - COMPLETE REASON FOR EXAM: Female, [address] -- RT ADNEXAL CYST SEEN ON OUTSIDE FILMS LMP: 04/21/2022. TECHNIQUE: Transabdominal and Transvaginal TECHNICAL QUALITY: Adequate. COMPARISON: None. FINDINGS: The uterus is anteverted and is in a midline position. The uterus measures 5.8 cm x 3.5 cm x 2.7 cm. There is a Nabothian cyst of the cervix. The endometrium measures 4 mm in thickness, and is hyperechoic. There is no demonstrated endometrial mass. I suspect a 7 mm x 9 mm x 8 mm fibroid. I.U.D. - The patient does not have an I.U.D. The right ovary is visualized. The right ovary measures 2.4 cm x 2.3 cm x 1.4 cm. A dominant follicle is seen within the ovary measuring 7 mm x 5 mm x 6 mm. There is no visualized right adnexal mass or complex lesion. There is normal arterial and normal venous vascularity. The left ovary is non-visualized. There is no fluid in the cul-de-sac. The pre void volume of the bladder was 248 ml. US/Transvaginal Non- IMPRESSION: Small uterine fibroid. Dominant follicle in the right ovary measuring 7 mm x 5 mm x 6 mm. Electronically Signed: Kiko Montejo MD at 15:36 EDT ,
--- NOTE | 2022-04-27 12:47 | US_ITS ---
STUDY: ULTRASOUND OF THE FEMALE PELVIS - COMPLETE REASON FOR EXAM: Female, [address] -- RT ADNEXAL CYST SEEN ON OUTSIDE FILMS LMP: 04/21/2022. TECHNIQUE: Transabdominal and Transvaginal TECHNICAL QUALITY: Adequate. COMPARISON: None. FINDINGS: The uterus is anteverted and is in a midline position. The uterus measures 5.8 cm x 3.5 cm x 2.7 cm. There is a Nabothian cyst of the cervix. The endometrium measures 4 mm in thickness, and is hyperechoic. There is no demonstrated endometrial mass. I suspect a 7 mm x 9 mm x 8 mm fibroid. I.U.D. - The patient does not have an I.U.D. The right ovary is visualized. The right ovary measures 2.4 cm x 2.3 cm x 1.4 cm. A dominant follicle is seen within the ovary measuring 7 mm x 5 mm x 6 mm. There is no visualized right adnexal mass or complex lesion. There is normal arterial and normal venous vascularity. The left ovary is non-visualized. There is no fluid in the cul-de-sac. The pre void volume of the bladder was 248 ml. US/Pelvic (Non ) IMPRESSION: Small uterine fibroid. Dominant follicle in the right ovary measuring 7 mm x 5 mm x 6 mm. Electronically Signed: Kiko Montejo MD at 15:36 EDT ,
== END | disposition home or self-care (01) ==
LOC: OPUS 12:45
PROVIDERS: PCP Family Medicine; Visit Provider Nurse Practitioner Women's Health
DX: N83.01 Follicular cyst of right ovary (principal)
CPT/HCPCS: 76830; 76856

== ENCOUNTER → 2022-07-20 | Outpatient (CLI) | payer OTHER, SELFPAY ==
[2022-07-29 16:14] LABS: HPV APTIMA, High Risk Negative (Negative)
[2022-07-29 16:15] LABS: HPV Reflexed? YES, CHARGE PATIENT
== END | disposition home or self-care (01) ==
LOC: LABSPEC 16:44
PROVIDERS: PCP Family Medicine; Referring Provider Nurse Practitioner Women's Health; Visit Provider Nurse Practitioner Women's Health
DX: Z12.4 Encounter for screening for malignant neoplasm of cervix (principal); N89.8 Other specified noninflammatory disorders of vagina
CPT/HCPCS: 87070; 87205; 87624; 88175; G0145

== ENCOUNTER → 2022-08-12 | Outpatient (CLI) | payer OTHER, SELFPAY ==
--- NOTE | 2022-08-12 | IMM_PTH ---
PATIENT: LIEN IZAGUIRRE LOC: [facility]#:[id number] AGE/SX: 47/F ROOM: RE08/12/[address]: WILLIAM Johnson : 1975 BED: DIS: 08/12/2022 SPEC #: [id number] RECD: 08/16/22 11:27 STATUS: IMANI REQ #: [id number] JO ANN: 08/12/22 00:[address]: Emma Mcgee NP DEPT: IMMUNOHISTOCHEMISTRY RECD BY: Shala Brush ENTERED: 08/16/22 11:27 SP TYPE: IMMUNO OTHR DR: [facility] T[facility]: B - Uterine cervix, NOS Procedures: p16 (initial) KI-67 (add) PHYSICIAN & INSTITUTION [place] [id number] SPECIMEN INFORMATION: Tissue Source: B ? Cervix 12 o?clock Clinical Info: STEVEN Specimen Number: [id number] CPT code: 71560, 70800 METHODOLOGY: Deparaffinized sections of prefer/formalin-fixed tissue or PAP/DQ stained slides are incubated with monoclonal/polyclonal antibodies/oligonucleotide probes. Localization is made via biotin free immunoperoxidase method. Appropriate controls are performed and reacted as expected. Results on target cell population are indicated in the following table: RESULTS: ANTIBODY / CLONE RESULT Block B P16 (E6H4) positive, focal and patchy Ki-67 (30-9) positive, low These tests were developed and their performance characteristics determined by [facility]. They may not have been cleared or approved by the U.S. Food and Drug Administration. The FDA has determined that such clearance or approval is not necessary. The above immunohistochemical/dualISH markers are ordered and reviewed by the Pathologist. INTERPRETATION: B. Cervix at 12 o?clock, biopsy: Focal mild squamous dysplasia. SJ:carlos enrique 08/17/2022
--- NOTE | 2022-08-12 14:15 | ECC_PTH ---
PATIENT: LIEN IZAGUIRRE LOC: [facility]#:[id number] AGE/SX: 47/F ROOM: RE08/12/[address]: WILLIAM Johnson : 1975 BED: DIS: 08/12/2022 SPEC #: [id number] RECD: 08/13/22 08:02 STATUS: IMANI REHayley #: [id number] JO ANN: 08/12/22 14:[address]: Emma Mcgee NP DEPT: SURGICAL PATHOLOGY RECD BY: Roger Hong ENTERED: 08/13/22 08:04 SP TYPE: ECC OTHR DR: [facility]: A - Endocervical B - Endocervical Procedures: Surgery Specimen Level IV HEADER OPERATION: Colposcopy PRE-OP DIAGNOSIS: LGSIL TISSUE SUBMITTED: A ? Endocervical curettings, B ? Cervix 12 o?clock MICROSCOPIC DIAGNOSIS A. Endocervical curettings: Fragments of benign endocervical mucosa with chronic inflammation and mucous. Negative for dysplasia. B. 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 Chronic inflammation. See comment. DOROTHY:carlos enrique 08/16/2022 COMMENT B. Immunohistochemistry ([id number]) for surrogate HPV marker (p16) supports the above diagnosis. MICROSCOPIC DESCRIPTION Slides are reviewed. GROSS DESCRIPTION A - Received in fixative is one container labeled with the patient's name and designated endocervical curettings. The specimen consists of multiple irregular fragments of metz mucoid tissue that in aggregate measure 1 x 0.3 x 0.1 cm. The specimen is totally submitted in one cassette. B - Received in fixative is one container labeled with the patient's name and designated 12 o'clock cervix. The specimen consists of multiple fragments of metz hemorrhagic soft tissue that in aggregate measure 1 x 0.4 x 0.1 cm. The specimen is totally submitted in one cassette. / DOROTHY:carlos enrique 08/13/2022 TC:5 CPT: 86065 x2
[2022-08-12 15:27] LABS: Progesterone Level 0.66 ng/mL (See Comment)
[2022-08-12 15:32] LABS: Estradiol 171.4 pg/mL; Follicle Stimulating Hormone 51.9 mIU/mL; Luteinizing Hormone 65.1 mIU/mL; Thyroid Stim Hormone (TSH) 0.92 uIU/mL (0.358-3.74)
== END | disposition home or self-care (01) ==
PROVIDERS: Obstetrics & Gynecology; PCP Family Medicine; Referring Provider Nurse Practitioner Women's Health; Visit Provider Nurse Practitioner Women's Health
DX: R87.612 Low grade squamous intraepithelial lesion on cytologic smear of cervix (LGSIL) (principal); N92.4 Excessive bleeding in the premenopausal period
CPT/HCPCS: 36415; 82670; 83001; 83002; 84144; 84443; 88305; 88341; 88342

== ENCOUNTER → 2023-09-14 | Outpatient (CLI) | payer OTHER, SELFPAY ==
[2023-09-21 06:08] LABS: HPV APTIMA, High Risk Positive (Negative); HPV Genotype 16, Aptima Negative (Negative); HPV Genotype 18,45 Aptima Negative (Negative)
== END | disposition home or self-care (01) ==
LOC: LABSPEC 15:36
PROVIDERS: PCP Family Medicine; Referring Provider Nurse Practitioner Women's Health; Visit Provider Nurse Practitioner Women's Health
DX: Z12.4 Encounter for screening for malignant neoplasm of cervix (principal)
CPT/HCPCS: 87624; 88175; G0145

== ENCOUNTER → 2025-04-01 | Outpatient (CLI) | payer OTHER, SELFPAY ==
[2025-04-04 11:09] LABS: HPV APTIMA, High Risk Negative (Negative)
== END | disposition home or self-care (01) ==
LOC: LABSPEC 16:03
PROVIDERS: PCP Family Medicine; Referring Provider Nurse Practitioner Women's Health; Visit Provider Nurse Practitioner Women's Health
DX: Z12.4 Encounter for screening for malignant neoplasm of cervix (principal)
CPT/HCPCS: 87624; 88175; G0145